=== PATIENT | female | born 1960 | race Caucasian/White ===

== ENCOUNTER 2024-06-01 13:40 | Emergency (ER) | payer SELFPAY ==
[2024-06-01 13:41] VITALS: BP 151/77
--- NOTE | 2024-06-01 15:58 | ED.GENMED ---
History of Present Illness
General
Chief Complaint: Urinary Symptoms
Source: patient
Exam Limitations: none
Time Seen by Provider: 06/01/24 15:28
Nursing documentation reviewed up to this point in time: agreed with
History of Present Illness
History of Present Illness:
63-year-old female with past medical history of A-fib ( on Xarelto ) presents to the ER for evaluation. She reports she recently moved back to the area from [place] and since April she has had issues with urinary frequency urgency and pressure.
She was seen by a family [facility] care physician towards the middle/end of April and had urine specimens tested which were negative for infection. She was told they were contaminated.
She reports she felt fine yesterday however today started with urgency pressure and a lower abdominal pain.
She denies any fever or chills. Because of the pain and the nature of how sharp it was she presented to the ER.
Past History
Past History
ED Past Medical History: None
ED Past Surgical History: Gynecological and Orthopedic
Social History
Tobacco: Non-smoker
Alcohol: None
Drug: None
Personal: Single
Living: with family
Employment: Employed
Review of Systems
Review of Systems
Allergies reviewed?: Yes
All Other Systems: ROS reviewed and negative except as documented in HPI and ROS
Constitutional: Reports no symptoms
Respiratory: Reports no symptoms
Cardiac: Reports no symptoms
ABD/GI: Reports abdominal pain; Denies nausea, vomiting, diarrhea or constipated
: Reports frequency and urgency; Denies dysuria
Skin: Reports no symptoms
Neurological: Reports no symptoms
Psychiatric: Reports no symptoms
Phy Exam
General Physical Exam
General Presentation: no apparent distress
General age: appears stated age
General Skin: warm and dry
General Habitus: normal
General Mental: alert
General Hydration: appears well hydrated
Gastrointestinal Exam
Gastrointestinal Exam: soft and other (lower abd tenderness )
Neurological Exam
Neurological Exam: alert and oriented x3
Musculoskeletal Exam
Musculoskeletal Exam: full ROM
Skin Exam
Skin Exam: normal color and warm/dry
Psychiatric Exam
Psychiatric Exam: normal mood/affect
Course
Orders/Labs/Results
Orders:
Orders
06/01/24 15:53
CT Abd/Pel (IV only)-DH only Urgent
Comment:
Reason For Exam: lower abd pain
IV Insert/Care/Rem.- Treatment PRN
06/01/24 16:26
Complete Blood Count/With Diff Urgent
Comprehensive Metabolic Panel Urgent
Lipase Urgent
06/01/24 17:37
0.9% Sodium Chloride 1000 ml [Nss] 1,000 ml IV BOLUS
06/01/24 19:33
Acetaminophen 1000MG/100Ml [Ofirmev] 1,000 mg in 100 ml IV ONCE
Acetaminophen IV Indication:: ED Narcotic Naive Pt-ONCE
06/01/24 19:47
Urinalysis Reflex To Culture Urgent
Date Specimen was Collected: 06/01/24
Time Specimen was Collected: 19:45
Urine Microscopic Reflex Cult Urgent
Abnormal Lab Results
06/01/24 06/01/24
16:26 19:47
BUN 20 H mg/dl
(7-17)
Total Protein 6.1 L g/dl
(6.3-8.2)
Urine Ketones 3+ A
(Negative)
Ur Occult Blood Reflex 4+ A
(Negative)
Urine RBC 16-20 A /HPF
(0-2)
06/01/24 16:26
06/01/24 16:26
Vital Signs
Initial and Last Documented VS:
Initial Vital Signs
Temp Pulse Resp BP Pulse Ox
98.0 F 78 18 151/77 97
06/01/24 13:41 06/01/24 13:41 06/01/24 13:41 06/01/24 13:41 06/01/24 13:41
Last Documented Vital Signs
Temp Pulse Resp BP Pulse Ox
97.9 F 66 18 136/62 98
06/01/24 19:56 06/01/24 19:56 06/01/24 19:56 06/01/24 19:56 06/01/24 19:56
MDM/Problems Addressed
Differential Diagnosis Includes:
not limited to: Diverticulitis renal colic UTI pyelonephritis
MDM/Problems Addressed:
Patient is a 63-year-old female who has had urinary symptoms intermittently for the past 3 weeks initially she had UTI and was placed on antibiotics today however she complained of lower abdominal pain. She presents awake alert no acute distress
denies any fever she is afebrile with a normal white count normal hemoglobin, normal chemistries; urinalysis shows 16�20 RBCs but negative leuks negative nitrates. CAT scan does show a 4 mm calculus at the left UVJ with associated upstream mild to
moderate left hydroureteronephrosis. In addition there is a large minimally complex right renal cyst. To review this with patient. Patient was given IV acetaminophen here as she is on Xarelto for previous history of A-fib. Will DC with
outpatient urology will give prescription for pain medication and Flomax. His
Chronic conditions affecting care:
History of A-fib on Xarelto
*Critical Care Note
Total Time (30-74mins, 75-104mins- exclusive of procedures): Not Applicable
ED Attending Note
-
Portions of this chart may have been created with voice recognition software.� Occasional wrong word or��sound alike� substitutions may have occurred due to the inherent limitations of voice recognition software.
Discharge Plan
Departure
Patient Disposition: Home (Routine Discharge)
Date of Disposition: 06/01/24
Time of Disposition: 20:24
Patient with high blood pressure during this ER visit?: Yes
Condition: Fair
Covid-19: Not Applicable
Discharge Problem:
Renal colic on left side
Instructions: Kidney stones in adults, BLOOD PRESSURE
Prescriptions:
New
tamsulosin [Flomax] 0.4 mg capsule
0.4 mg PO DAILY Qty: 7 0RF
oxycodone 5 mg capsule
5 mg PO Q6H PRN (Reason: Pain) Qty: 10 0RF
No Action
No Current Medications
Referrals:
Torey Vu MD [Active] -
UNKNOWN - PT DOES,NOT KNOW [Family Provider] -
Activity Restrictions/Additional Instructions:
As discussed strain all urine.
Take Flomax as directed to help with flow of kidney stone. This medication was sent to your pharmacy. You may take Tylenol every 4-6 hours for pain however if needed a prescription for oxycodone was sent to your pharmacy. This is a narcotic. It
will cause drowsiness. No driving or drinking alcohol taking this medication. As discussed it may cause constipation.
be sure to take [id number] stool softener. Follow-up with urology in the next several days .
call to make an appointment tomorrow. Return if any worsening of symptoms of increased pain nausea vomiting fever chills
Interventions
Interventions:
*Risk Screen - Suicide Last Done: 06/01/24 17:03
*General Assessment Last Done: 06/01/24 17:03
*Neglect/Abuse Screening Last Done: 06/01/24 17:03
ED- Fall Risk Assessment Last Done: 06/01/24 17:03
*ED COVID-19 Vaccine History Last Done: 06/01/24 17:03
ED-Female Genitourinary Assessment Last Done: 06/01/24 17:03
Discharge Date and Time
Print Language: MAORI
[2024-06-01 16:36] LABS: % Basophils 0.3 % (0-2); % Eosinophils 2.4 % (0-6); % Immature Granulocytes 0.2 % (0-0.5); % Lymphocytes 27.5 % (20.5-51.1); % Monocytes 5.4 % (1.7-9.3); % Neutrophils 64.2 % (42.2-75.2); Absolute Eosinophils 0.2 10^3/uL (0-0.7); Absolute Lymphocytes 2.4 10^3/uL (1.2-3.4); Absolute Monocytes 0.5 10^3/uL (0.1-0.6); Absolute Neutrophils 5.6 10^3/uL (1.4-6.5); Hematocrit 37.6 % (37.0-47.0); Hemoglobin 12.5 g/dL (12.0-16.0); Mean Corp Hgb Conc. 33.2 g/dL (33.0-37.0); Mean Corpuscular Hgb 28.9 pg (27.0-31.0); Mean Corpuscular Volume 86.8 fL (81.0-99.0); Mean Platelet Volume 9.9 fL (7.4-10.4); Nucleated Red Blood Cells % 0 %; Platelet Count 273 10^3/uL (130-400); Red Blood Cell Count 4.33 10^6/uL (4.20-5.40); Red Cell Dist. Width 12.6 % (11.5-14.5); White Blood Cell Count 8.7 10^3/uL (4.8-10.8)
[2024-06-01 17:06] LABS: ALT (SGPT) 17 U/L (0-35); AST (SGOT) 27 U/L (14-36); Albumin 3.8 g/dl (3.5-5.0); Alkaline Phosphatase 98 U/L (38-126); Blood Urea Nitrogen 20 mg/dl (7-17); Calcium 10.1 mg/dl (8.4-10.2); Carbon Dioxide 25 mmol/L (22-30); Chloride 106 mmol/L (98-107); Glucose 86 mg/dl (70-99); Lipase 80 U/L (23-300); Potassium 3.9 mmol/L (3.5-5.1); Sodium 139 mmol/L (135-145); Total Bilirubin 0.6 mg/dl (0.2-1.3); Total Protein 6.1 g/dl (6.3-8.2); eGFR > 60.00
[2024-06-01 17:12] VITALS: BMI 29.6
[2024-06-01] MEDS: NSS 1000 IV (17:39)
[2024-06-01] MEDS: OFIRMEV 100 IV (19:50)
[2024-06-01 19:56] VITALS: BP 136/62
[2024-06-01 19:58] LABS: Urine Albumin Trace (Neg - Trace); Urine Bilirubin Negative (Negative); Urine Character Clear (Clear); Urine Color Yellow; Urine Glucose Negative (Negative); Urine Ketone 3+ (Negative); Urine Leukocyte Negative (Negative); Urine Nitrite Negative (Negative); Urine Occult Blood 4+ (Negative); Urine Specific Gravity 1.015 (<1.030); Urine Urobilinogen Negative (Neg - 1+)
[2024-06-01 20:18] LABS: Urine Red Blood Cell 16-20 /HPF (0-2); Urine White Cell 0-2 /HPF (0-5)
== END 2024-06-01 20:43 | disposition home or self-care (01) ==
LOC: EMR 13:40
PROVIDERS: Nurse Practitioner; EMERGENCY PHYSICIAN Emergency Medicine
DX: N13.2 Hydronephrosis with renal and ureteral calculous obstruction (principal); I48.91 Unspecified atrial fibrillation; Z79.01 Long term (current) use of anticoagulants; R03.0 Elevated blood-pressure reading, without diagnosis of hypertension
CPT/HCPCS: 99285; 96360; 74177; 80053; 81003; 81015; 83690; 85025; Q9967

== ENCOUNTER 2024-09-21 00:01 | Emergency (ER) | payer MEDICARE, OTHER, SELFPAY ==
[2024-09-21 00:10] VITALS: BP 115/64
[2024-09-21 00:40] LABS: Hematocrit 49.9 % (37.0-47.0); Hemoglobin 16.5 g/dL (12.0-16.0); Mean Corp Hgb Conc. 33.1 g/dL (33.0-37.0); Mean Corpuscular Hgb 28.7 pg (27.0-31.0); Mean Corpuscular Volume 86.9 fL (81.0-99.0); Mean Platelet Volume 9.8 fL (7.4-10.4); Platelet Count 282 10^3/uL (130-400); Red Blood Cell Count 5.74 10^6/uL (4.20-5.40); Red Cell Dist. Width 12.5 % (11.5-14.5); White Blood Cell Count 15.6 10^3/uL (4.8-10.8)
[2024-09-21 00:53] LABS: Blood Urea Nitrogen 31 mg/dl (7-17); Calcium 10.6 mg/dl (8.4-10.2); Carbon Dioxide 26 mmol/L (22-30); Chloride 100 mmol/L (98-107); Glucose 172 mg/dl (70-99); Potassium 4.7 mmol/L (3.5-5.1); Sodium 138 mmol/L (135-145); eGFR > 60.00
--- NOTE | 2024-09-21 01:20 | ED.GENMED ---
History of Present Illness
General
Chief Complaint: Abdominal Symptoms
Time Seen by Provider: 09/21/24 01:20
History of Present Illness
History of Present Illness:
TIME OF INITIAL ENCOUNTER: 1:20 AM
HPI: Approximately 7 hours ago, after working a 10-hour workday, the patient had abrupt onset nausea, vomiting, and diarrhea. She has waves of abdominal pain and some head discomfort but currently does not have any significant pain. She feels
dehydrated. She also has a history of A-fib and is no longer on Xarelto or other meds for her heart because of lack of insurance but currently now has Medicare.
EXAM:
GENERAL: Appears slightly uncomfortable and weak
HEENT: Moist oral mucosa
CARDIOVASCULAR: No murmurs, tachycardic heart rate, irregular rhythm, No chest wall tenderness
PULMONARY: No respiratory distress, breath sounds are clear and equal
ABDOMEN: Soft with no peritoneal signs, no tenderness
NEUROLOGIC: Good strength all extremities, no coordination deficits
PSYCHIATRIC: Appropriate mental status, normal insight and judgement
EXTREMITIES: Nontender, no edema, moves all extremities equally
SKIN: No rash, no lesions
NUMBER AND COMPLEXITY OF PROBLEMS ADDRESSED AT THE ENCOUNTER
� Chronic conditions affecting care: A-fib but no longer takes medications for it
� Acute Exacerbation and/or Progression of Chronic Illness: This is an acute problem
� Differential Diagnosis includes: Dehydration, RANDY, electrolyte abnormality, rapid A-fib, foodborne illness, viral syndrome
AMOUNT AND/OR COMPLEXITY OF DATA TO BE REVIEWED AND ANALYZED
� I performed an independent evaluation of and my interpretation is:
EKG: A-fib 109, normal axis, nonspecific ST and
CT:
X-rays:
Laboratory Studies: White count 15.6, hemoglobin 16.5, BUN 31, creatinine 0.7,
Other:
� Review of other/old records: The patient was seen here 3 months ago diagnosed with renal colic
� Clinical information was obtained by an independent historian: None needed
� Prescriptions/Medications Considered but not given:
� Further testing considered but not performed: Considered CT imaging however the patient has vomiting as well as diarrhea and no significant abdominal tenderness therefore we will hold off on CT
RISK OF COMPLICATIONS AND/OR MORBIDITY OR MORTALITY OF PATIENT MANAGEMENT
� Social determinants of health affecting care: Lives at home
� Discussion with other providers:
� Escalation of care including admission/observation vs risk of discharge considered: Suspect more of a viral syndrome. Leukocytosis noted but the patient has no significant abdominal tenderness. Patient was given IV fluids,
Zofran, Pepcid, and Toradol.
ANY OTHER UPDATES:
3:18 AM: I reassessed patient. The patient feels markedly improved. Will give paper prescription for Xarelto as she has not been taking her Xarelto with history of paroxysmal A-fib. Repeat monitoring shows sinus rhythm with rates in the 80s.
Past History
Past History
ED Past Medical History: None
ED Past Surgical History: Gynecological and Orthopedic
Social History
Tobacco: Non-smoker
Alcohol: None
Drug: None
Personal: Single
Living: with family
Employment: Employed
Phy Exam
Physical Exam
Physical Exam:
See HPI
Course
Orders/Labs/Results
Orders:
Orders
09/21/24 00:14
Electrocardiogram (*1) Urgent
Reason for Study: Atrial Fibrillation
Other Reason for Exam: HX OF AT FIB
09/21/24 00:15
EKG- Treatment ONCE
09/21/24 00:31
BMP [Basic Metabolic Panel] Urgent
Complete Blood Count/No Diff Urgent
09/21/24 01:21
0.9% Sodium Chloride 1000 ml [Nss] 1,000 ml IV BOLUS
Ondansetron Injectable [Zofran] 4 mg IV NOW STA
09/21/24 01:26
Famotidine [Pepcid] 20 mg IV NOW STA
Ketorolac [Toradol] 15 mg IV NOW STA
Abnormal Lab Results
09/21/24
00:31
WBC 15.6 H 10^3/uL
(4.8-10.8)
RBC 5.74 H 10^6/uL
(4.20-5.40)
Hgb 16.5 H g/dL
(12.0-16.0)
Hct 49.9 H %
(37.0-47.0)
BUN 31 H mg/dl
(7-17)
Glucose 172 H mg/dl
(70-99)
Calcium 10.6 H mg/dl
(8.4-10.2)
09/21/24 00:31
09/21/24 00:31
Vital Signs
Initial and Last Documented VS:
Initial Vital Signs
Temp Pulse Resp BP Pulse Ox
36.5 C 88 26 115/64 95
09/21/24 00:10 09/21/24 00:10 09/21/24 00:10 09/21/24 00:10 09/21/24 00:10
Last Documented Vital Signs
Temp Pulse Resp BP Pulse Ox
36.5 C 86 16 96/54 95
09/21/24 00:10 09/21/24 03:00 09/21/24 03:00 09/21/24 03:00 09/21/24 03:00
*Critical Care Note
Total Time (30-74mins, 75-104mins- exclusive of procedures): Not Applicable
ED Attending Note
-
Portions of this chart may have been created with voice recognition software.� Occasional wrong word or��sound alike� substitutions may have occurred due to the inherent limitations of voice recognition software.
Discharge Plan
Departure
Prescriptions:
No Action
No Current Medications
tamsulosin [Flomax] 0.4 mg capsule
0.4 mg PO DAILY Qty: 7 0RF
oxycodone 5 mg capsule
5 mg PO Q6H PRN (Reason: Pain) Qty: 10 0RF
Referrals:
PRIVATE,PHYSICIAN [Family Provider] -
Interventions
Interventions:
*Risk Screen - Suicide Last Done: 09/21/24 00:10
*General Assessment Last Done: 09/21/24 01:34
*Neglect/Abuse Screening Last Done: 09/21/24 00:10
ED- Fall Risk Assessment Last Done: 09/21/24 01:41
*ED COVID-19 Vaccine History Last Done: 09/21/24 01:34
DK-Hxsppr-Rwcexwzugn Assessment Last Done: 09/21/24 01:40
Discharge Date and Time
Print Language: CROATIAN
[2024-09-21 01:30] VITALS: BMI 28.6
[2024-09-21] MEDS: NSS 1000 IV (01:34)
[2024-09-21] MEDS: ZOFRAN 4 MG IV (01:35)
[2024-09-21] MEDS: TORADOL 15 MG IV (01:37)
[2024-09-21] MEDS: PEPCID 20 MG IV (01:37)
[2024-09-21 01:38] VITALS: BP 123/62
[2024-09-21 02:00] VITALS: BP 97/57
[2024-09-21 03:00] VITALS: BP 96/54
== END 2024-09-21 03:43 | disposition home or self-care (01) ==
LOC: EMR 00:01
PROVIDERS: EMERGENCY PHYSICIAN Emergency Medicine
DX: I48.0 Paroxysmal atrial fibrillation (principal); Z91.148 Patient's other noncompliance with medication regimen for other reason; R11.2 Nausea with vomiting, unspecified; R10.9 Unspecified abdominal pain
CPT/HCPCS: 96374; 96375; 96361; 99284; 80048; 85027; 93005

== ENCOUNTER 2024-10-16 18:19 | Emergency (ER) | payer MEDICARE, OTHER, SELFPAY ==
[2024-10-16 18:30] VITALS: BP 119/73
[2024-10-16 19:03] LABS: % Basophils 0.2 % (0-2); % Eosinophils 0.7 % (0-6); % Immature Granulocytes 0.4 % (0-0.5); % Lymphocytes 24.8 % (20.5-51.1); % Monocytes 10.3 % (1.7-9.3); % Neutrophils 63.6 % (42.2-75.2); Absolute Lymphocytes 1.1 10^3/uL (1.2-3.4); Absolute Monocytes 0.5 10^3/uL (0.1-0.6); Absolute Neutrophils 2.9 10^3/uL (1.4-6.5); Hematocrit 43.2 % (37.0-47.0); Hemoglobin 14.2 g/dL (12.0-16.0); Mean Corp Hgb Conc. 32.9 g/dL (33.0-37.0); Mean Corpuscular Volume 88.2 fL (81.0-99.0); Mean Platelet Volume 10.3 fL (7.4-10.4); Nucleated Red Blood Cells % 0 %; Platelet Count 191 10^3/uL (130-400); Red Cell Dist. Width 12.8 % (11.5-14.5); White Blood Cell Count 4.5 10^3/uL (4.8-10.8)
[2024-10-16 19:17] LABS: ALT (SGPT) 18 U/L (0-35); AST (SGOT) 30 U/L (14-36); Albumin 3.9 g/dl (3.5-5.0); Alkaline Phosphatase 90 U/L (38-126); Blood Urea Nitrogen 16 mg/dl (7-17); COVID-19 Antigen Negative (Negative); Carbon Dioxide 27 mmol/L (22-30); Chloride 100 mmol/L (98-107); Glucose 105 mg/dl (70-99); Potassium 4.1 mmol/L (3.5-5.1); Sodium 134 mmol/L (135-145); Total Bilirubin 0.5 mg/dl (0.2-1.3); Total Protein 6.5 g/dl (6.3-8.2); eGFR > 60.00
--- NOTE | 2024-10-16 19:54 | ED.GENMED ---
History of Present Illness
General
Chief Complaint: Cold/Flu/URI Symptoms
Source: patient
Time Seen by Provider: 10/16/24 19:24
History of Present Illness
History of Present Illness:
64-year-old female presents with persistent fevers. Started with symptoms 4 days ago. States that she feels like it is getting worse. Also states that she feels like she has A-fib. Saw the senior research executive yesterday. She is on Xarelto and
metoprolol. No vomiting. No abdominal pain. States just has a persistent cough and reports chest discomfort as a result. No hemoptysis. 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
Past History
Past History
ED Past Medical History: Arrthythmia (Atrial fibrillation)
ED Past Surgical History: Gynecological and Orthopedic
Social History
Tobacco: Non-smoker
Alcohol: None
Drug: None
Personal: Single
Living: with family
Employment: Employed
Phy Exam
Physical Exam
Physical Exam:
CONSTITUTIONAL Patient alert and oriented to person, place and time. Well-appearing. Vital signs reviewed.
HEAD atraumatic, normocephalic.
EYES eyelids normal to inspection, Extraocular muscles intact, Conjunctiva normal, Sclera normal.
NECK normal range of motion, Trachea midline, no jugular venous distention.
RESPIRATORY CHEST No respiratory distress noted, Chest expansion equal, Bilateral breath sounds clear.
CARDIOVASCULAR regular with ectopy, PACs noted on telemetry
ABDOMEN abdomen nontender, Bowel sounds normal. No distention.
BACK normal inspection, no obvious deformities
UPPER EXTREMITY range of motion normal, Motor strength normal, no cyanosis, no edema.
LOWER EXTREMITY range of motion normal, Motor strength normal, no cyanosis, no edema.
NEURO Speech normal, No focal motor deficits, [place] coma scale 15, Memory normal, Cranial Nerves intact to screening exam.
SKIN skin warm, dry, and normal in color.
Course
Orders/Labs/Results
Orders:
Orders
10/16/24 18:32
Electrocardiogram (*1) Urgent
Reason for Study: Chest Pain
EKG- Treatment ONCE
10/16/24 18:38
COVID-19 Antigen Urgent
Source: Nasal Swab
Complete Blood Count/With Diff Urgent
Comprehensive Metabolic Panel Urgent
Influenza A+B Rapid Molecular Urgent
DARBY Source: Nasal Swab
Specimen Description:
10/16/24 19:55
0.9% Sodium Chloride 1000 ml [Nss] 1,000 ml IV BOLUS
Acetaminophen [Tylenol] 1,000 mg PO NOW STA
CR Chest - 2 Views Urgent
Comment:
Reason For Exam: fever
10/16/24 22:22
Amoxicillin 875 mg/Clav 125 mg [Augmentin 875 mg/125 mg] 1 tablet PO NOW STA
Abnormal Lab Results
10/16/24
18:38
WBC 4.5 L 10^3/uL
(4.8-10.8)
MCHC 32.9 L g/dL
(33.0-37.0)
Absolute Lymphs (auto) 1.1 L 10^3/uL
(1.2-3.4)
Monocytes % 10.3 H %
(1.7-9.3)
Sodium 134 L mmol/L
(135-145)
Glucose 105 H mg/dl
(70-99)
10/16/24 18:38
10/16/24 18:38
Vital Signs
Temp: 101.1 F
Initial and Last Documented VS:
Initial Vital Signs
Temp Pulse Resp BP Pulse Ox
100.0 F 107 16 119/73 98
10/16/24 18:30 10/16/24 18:30 10/16/24 18:30 10/16/24 18:30 10/16/24 18:30
Last Documented Vital Signs
Temp Pulse Resp BP Pulse Ox
98.3 F 74 14 116/61 96
10/16/24 21:35 10/16/24 22:00 10/16/24 20:34 10/16/24 21:35 10/16/24 22:00
MDM/Problems Addressed
Differential Diagnosis Includes:
Pneumonia, influenza, viral syndrome electrolyte disturbance
MDM/Problems Addressed:
Influenza, pneumonia
*Radiology
Radiology exam reviewed: radiology read reviewed
*Pulse Oximetry
Patient hypoxic: no
*Thermostat Maker Interpretation
Rate: normal
Interpretation: normal
Rhythm: sinus
*Critical Care Note
Total Time (30-74mins, 75-104mins- exclusive of procedures): Not Applicable
Data Reviewed
Source: patient
Further Testing Considered But Not Given:
Consider CTA chest for chest x-ray reveals possible pneumonia. Will cover with pneumonia in light of her persistent fever
Patient Management
Escalation/DeEscalation of care consider admission/obs:
Stable. Patient appears well. Will cover for pneumonia in light of recent influenza and the way she has had a persistent fever. Overall appears well and feels a little bit better after IV fluids
ED Attending Note
-
Portions of this chart may have been created with voice recognition software.� Occasional wrong word or��sound alike� substitutions may have occurred due to the inherent limitations of voice recognition software.
Discharge Plan
Departure
Patient Disposition: Home (Routine Discharge)
Date of Disposition: 10/16/24
Time of Disposition: 22:32
Patient with high blood pressure during this ER visit?: No
Discharge Problem:
Influenza, Pneumonia
Instructions: Flu, Pneumonia
Prescriptions:
New
amoxicillin-pot clavulanate 875-125 mg tablet
1 tab PO BID Qty: 20 0RF
No Action
No Current Medications
tamsulosin [Flomax] 0.4 mg capsule
0.4 mg PO DAILY Qty: 7 0RF
oxycodone 5 mg capsule
5 mg PO Q6H PRN (Reason: Pain) Qty: 10 0RF
Xarelto 20 mg tablet
20 mg PO DAILY Qty: 30 0RF
Referrals:
UNKNOWN - PT DOES,NOT KNOW [Family Provider] -
Activity Restrictions/Additional Instructions:
Please see your doctor in the next 2 to 3 days for follow-up and reevaluation. Return immediately for worsening symptoms, difficulty breathing, weakness of any kind or any other concerns. Please drink plenty fluids and use Tylenol for fever
control.
Interventions
Interventions:
*Risk Screen - Suicide Last Done: 10/16/24 18:30
*General Assessment Last Done: 10/16/24 20:34
*Neglect/Abuse Screening Last Done: 10/16/24 18:30
ED- Fall Risk Assessment Last Done: 10/16/24 20:34
*ED COVID-19 Vaccine History Last Done: 10/16/24 20:34
ED- Pulmonary Assessment Last Done: 10/16/24 20:34
Discharge Date and Time
Print Language: HEBREW
[2024-10-16] MEDS: TYLENOL 1000 MG PO (20:20)
[2024-10-16] MEDS: NSS 1000 IV (20:28)
[2024-10-16 20:34] VITALS: BP 139/60; BMI 28.3
[2024-10-16 21:35] VITALS: BP 116/61
[2024-10-16] MEDS: AUGMENTIN 875 MG/125 MG 1 TABLET PO (22:48)
== END 2024-10-16 23:02 | disposition home or self-care (01) ==
LOC: EMR 18:19
PROVIDERS: Emergency Medicine; EMERGENCY PHYSICIAN Emergency Medicine
DX: J10.00 Influenza due to other identified influenza virus with unspecified type of pneumonia (principal); I48.91 Unspecified atrial fibrillation; Z79.01 Long term (current) use of anticoagulants
CPT/HCPCS: 99285; 96360; 96361; 71046; 80053; 85025; 87502; 87811; 93005

== ENCOUNTER → 2024-11-29 13:49 | Outpatient (REF) | payer MEDICARE, SELFPAY | LOC: RCS 13:49 | PROVIDERS: ATTENDING PHYSICIAN Internal Medicine | DX: I48.0 Paroxysmal atrial fibrillation (principal) | CPT/HCPCS: 93306 ==

== ENCOUNTER → 2025-02-02 12:46 | Outpatient (REF) | payer MEDICARE, SELFPAY ==
[2025-02-02 14:32] LABS: % Basophils 0.6 % (0-2); % Eosinophils 1.7 % (0-6); % Immature Granulocytes 0.2 % (0-0.5); % Lymphocytes 32.8 % (20.5-51.1); % Monocytes 6.5 % (1.7-9.3); % Neutrophils 58.2 % (42.2-75.2); Absolute Basophils 0.1 10^3/uL (0-0.2); Absolute Eosinophils 0.2 10^3/uL (0-0.7); Absolute Lymphocytes 3.2 10^3/uL (1.2-3.4); Absolute Monocytes 0.6 10^3/uL (0.1-0.6); Absolute Neutrophils 5.6 10^3/uL (1.4-6.5); Hemoglobin 13.7 g/dL (12.0-16.0); Mean Corp Hgb Conc. 31.9 g/dL (33.0-37.0); Mean Corpuscular Hgb 28.2 pg (27.0-31.0); Mean Corpuscular Volume 88.7 fL (81.0-99.0); Mean Platelet Volume 10.2 fL (7.4-10.4); Nucleated Red Blood Cells % 0 %; Platelet Count 270 10^3/uL (130-400); Red Blood Cell Count 4.85 10^6/uL (4.20-5.40); Red Cell Dist. Width 12.5 % (11.5-14.5); White Blood Cell Count 9.6 10^3/uL (4.8-10.8)
[2025-02-02 15:19] LABS: ALT (SGPT) 21 U/L (0-35); AST (SGOT) 27 U/L (14-36); Albumin 4.6 g/dl (3.5-5.0); Alkaline Phosphatase 101 U/L (38-126); Blood Urea Nitrogen 13 mg/dl (7-17); Calcium 10.2 mg/dl (8.4-10.2); Carbon Dioxide 27 mmol/L (22-30); Chloride 105 mmol/L (98-107); Glucose 80 mg/dl (70-99); Potassium 4.1 mmol/L (3.5-5.1); Sodium 140 mmol/L (135-145); Total Protein 7.1 g/dl (6.3-8.2); eGFR > 60.00
== END ==
LOC: SDSPAT 12:46
PROVIDERS: ATTENDING PHYSICIAN Internal Medicine Cardiovascular Disease; OTHER PHYSICIAN Internal Medicine
DX: I48.0 Paroxysmal atrial fibrillation (principal)
CPT/HCPCS: 36415; 80053; 85025; 86850; 86900; 86901; 93005

== ENCOUNTER 2025-02-17 05:53 | Day surgery (SDC) | payer MEDICARE, SELFPAY ==
[2025-02-02 13:28] VITALS: BMI 28.3
--- NOTE | 2025-02-02 13:56 | HPS.HSE ---
Family Physician
-
Family Physician: NO INTERVIEW UNKNOWN
Chief Complaint
-
Paroxysmal atrial fibrillation.
History of Present Illness
The patient is a 64 year old female presenting today for paroxysmal atrial fibrillation. The patient reports dyspnea on exertion where she intermittently 'gasps for air' likely secondary to this diagnosis. It is to the point that she is
unable to exercise anymore due to the fear of setting off an atrial fibrillation episode. She is on current pharmacological therapy with Metoprolol Tartrate. She does report recent compliance with Xarelto for oral anticoagulation due to a CHADS-VASc
of 2. She is interested in pursuing with a FARAPULSE atrial fibrillation ablation for further arrhythmia management. She denies any current complaints today such as chest pain, shortness of breath at rest, palpitations, nausea, vomiting, diarrhea,
lightheadedness, dizziness, cough, sore throat, or fever.
Medical History
Past Medical History
Past Medical History: Reports Other
Additional Past Medical History:
1. Paroxysmal atrial fibrillation, pharmacological therapy with Metoprolol Tartrate and oral anticoagulation with Xarelto.
2. Elevated blood pressure without diagnosis of hypertension.
3. Coronary artery disease, non-obstructive per cath 03/2024.
4. Nephrolithiasis.
5. Irregular bowel habits.
6. Vertigo.
7. Basal and squamous cell carcinoma, status post multiple excisions.
8. Acute blood loss anemia, status post blood transfusion 2004.
9. Situational anxiety.
10. Remote history of tobacco abuse.
Past Surgical History: Reports Other
Additional Past Surgical History:
1. Left cardiac catheterization.
2. Hysterectomy.
3. Right ankle fracture repair with retained hardware.
4. Colonoscopy x2.
Social History
Tobacco: Former Smoker (She is a former 1 pack per day cigarette smoker who quit tobacco altogether at 21 years old. )
Alcohol: None
Living: Alone (in a rented apartment. )
Family History
Family History: Not pertinent
Allergies / Home Medications
Allergy/Medication List:
Home medications:
1. Metoprolol Tartrate 25 mg p.o. at bedtime.
2. Xarelto 20 mg p.o. at bedtime.
Allergies: Codeine (remote).
Review of Systems
-
A 12 point ROS was completed and negative except as noted: Yes
Physical Exam
Vital Signs
Blood pressure 143/68. Heart rate 61. Respirations 18. Pulse ox 97% on room air.
Height 5 feet, 9 inches. Weight 86.9 kg. BMI 28.3.
Physical Exam
General: Well Developed, Well Nourished and No Apparent Distress
HEENT: NormoCephalic, Moist mucous membranes, Atraumatic and PERRLA
Respiratory: Clear
Cardiac: Bradycardia
GI: Soft, Non Tender and Non Distended
Musculoskeletal: No Edema and Normal Gait & Station
Skin: Warm and Dry
Neuro: AO x 3 and Nonfocal/grossly intact
Laboratory Results
-
DIAGNOSTIC STUDIES as of 02/02/2025: White blood cell count 9.6. Hemoglobin 13.7. Platelet count 270,000. Sodium 140. Potassium 4.1. BUN 13. Creatinine 0.6. Glucose 80. Calcium 10.2. AST 27. ALT 21. Albumin 4.6. Type and screen O positive.
EKG 02/02/2025: Sinus bradycardia. Possible left atrial enlargement.
Echocardiogram 11/29/2024: Ejection fraction is 65-70%. No regional wall motion abnormalities are seen. Normal right ventricular size and function. No significant valvular disease.
Impression/Plan
-
IMPRESSION/PLAN:
1. Paroxysmal atrial fibrillation: The patient is in need of FARAPULSE atrial fibrillation ablation with Dr. Paul Trivedi on 02/17/2025. The benefits and risks of the procedure have been explained to the patient. The patient understands these risks
and wishes to proceed. She will not be required to undergo a pre-procedural transesophageal echocardiogram as she has been compliant with her home oral anticoagulation. She is aware to hold her Xarelto the night before and morning of her procedure.
[2025-02-17] VITALS (23 sets, daily range): BP systolic 90–131; BP diastolic 53–64; BMI 27.6
[2025-02-17 08:58] LABS: ACT-LR - POC 335 Seconds (116-155)
[2025-02-17 09:20] LABS: ACT-LR - POC 335 Seconds (116-155)
[2025-02-17 09:26] LABS: ACT-LR - POC 324 Seconds (116-155)
[2025-02-17 09:27] LABS: ACT-LR - POC 355 Seconds (116-155)
[2025-02-17 09:42] LABS: ACT-LR - POC 297 Seconds (116-155)
--- NOTE | 2025-02-17 10:16 | ITS.CL.ABL ---
Founder Ceo & President - Ablation
Ablation
Procedure Report:
AFIB ablation and Watchman Implantation:
Ms. Brown is a very pleasant 64 yr old woman with symptomatic paroxysmal AF, is recommended for atrial fibrillation ablation.
Date of the Procedure:
02/17/2025
Indications:
Paroxysmal atrial fibrillation
Pre-Operative Diagnosis:
Paroxysmal atrial fibrillation / atrial flutter
Post-Operative Diagnosis:
Paroxysmal atrial fibrillation / atrial flutter
Procedure Performed:
Atrial fibrillation ablation with Pulsed-Field approach for pulmonary vein isolation
Roof dependent atrial flutter ablation
Posterior wall isolation
Performing Physician:
Paul Trivedi MD
Assistants:
EP staff
Anesthesia:
See anesthesia records
Detailed Description of the Procedure:
Written informed consent was obtained from the patient after a full explanation of the risks and benefits of the procedure including the risks of sedation and anesthesia.
The patient was brought to the electrophysiology laboratory in stable condition in fasting state. Continuous electrocardiographic and hemodynamic monitoring was initiated.
The initial rhythm was normal sinus rhythm.
The procedure site was meticulously prepared with surgical scrub and allowed to dry with no pooling. Sterile draping was applied to cover the procedure site. The image intensifier was draped with sterile bag and positioned over the patient. After
infusion of local anesthetic, vascular access was obtained under ultrasound guidance and sheaths were placed over guide wire as detailed below.
Sheath and Catheter Placement:
The following catheters / sheaths were placed
Sheaths:
��������� 17Fr steerable sheath (ZinkoTekriCodinGame�, Cycle) in right femoral
��������� 9Fr in right femoral vein
Catheters:
��������� REGINA HD Grid mapping catheter � at locations of RA, LA
��������� Farawave� PFA catheter
��������� ICE catheter -AcuNav - at locations of RA, SVC, and RV.
Intracardiac ECHO:
An 8-Belgian AcuNav intracardiac ECHO (ICE) probe was advanced through the 9-Belgian sheath in the right femoral vein into the right atrium under fluoroscopic and ICE ultrasound image guidance and a baseline ECHO study was performed. The left atrial
size was dilated. There was moderate tricuspid regurgitation. The aortic valve was grossly normal. There was normal left ventricular systolic functions. There is no pericardial effusion. All the four veins were identified and has flow identified.
There was good flow noted in the PATRICE.
During the procedure, ICE was used for monitoring of complications, guidance of trans-septal puncture, monitor the catheter position and tracking ablation lesions. No change in the pericardial space noted throughout the procedure.
Trans-septal Puncture:
Heparin was initiated and infused to maintain appropriate ACT. A pigtail guidewire was advanced through the 8-Belgian sheath in the right femoral vein into the superior vena cava under fluoroscopic and ICE guidance. The 9-Belgian sheath was exchanged
for a Faradrive sheath which was advanced into the superior vena cava. A transseptal VersaCross RF pigtail via Faradrive connect system was utilized to perform the trans-septal puncture. The apparatus was withdrawn until it was in contact with the
fossa ovalis. There was a large Foramen Ovale that was used to cross the septum to the LA. Once atrial septum was cannulated, the pigtail wire was advanced into the left atrium. The guide wire was advanced into the left superior pulmonary vein. Both
the sheath and the dilator was advanced into the left atrium. The dilator with the needle was withdrawn. Blood was aspirated from the Faradrive sheath and arterial blood confirmed. The sheath was flushed. Saline injection noted into the left atrium
on ICE. The mapping catheter was advanced in the sheath into the left pulmonary vein. Left atrial pressure was measured.
3D Electroanatomic Mapping:
Using the HD Grid catheter advanced through sheath into the left atrium, an electroanatomic map (EAM) of the left atrium was created using theeventwall mapping system. The map was used for localization of catheter position and tacking of ablation
lesions.
The EAM of the left atrium showed 4 pulmonary veins with all 4 veins electrically connected to the body the LA. It showed good signals in sinus rhythm. The LA was dilated in size.
Following the EAM, preparation were made for ablation.
Ablation:
Ablation # 1: Pulmonary vein Isolation:
Glycopyrrolate 0.2 mg was given prior to the placement of ablation. Using [employer] pulsed field ablation system, pulmonary vein isolation was achieved. First the ablation catheter was placed in the LSPV and ostial ablation lesions were performed in
an �[place]� formation of the Farawave configuration and a counter clock barker rotation was done and ablated to cover the area between the electrodes. Then the catheter was placed on the antral location in �Flower� configuration and multiple ablation
lesions were placed circumferentially on the antrum of the vein.
In the similar fashion, the LIPV were isolated.
Then the catheter was moved to right sided veins. The ostial and antral ablations were placed as noted above.
Post PVI Electroanatomic mapping:
Once ablation was completed, the EAM of the LA was done again in sinus rhythm using HD Grid with excellent demarcation of LA myocardium and isolated antral tissue. There was only little scattered scar noted on the anterior wall with slow conduction
of the signals at the roof with a perfect substrate for roof dependent flutter. The decision was made to proceed with roof line formation through the scar and posterior wall isolation.
The PATRICE had healthy signals and was not isolated.
Ablation #2: Roof dependent flutter ablation
Using the pulsed field ablation catheter, the catheter was placed between left superior pulmonary vein and right severe pulmonary vein with series of overlapping ablation lesions placed.
Ablation # 3: Posterior wall isolation:
Using the pulsed field ablation catheter, the catheter was placed on the posterior wall and moved around the posterior wall to have adequate contact and ablations were placed isolating the posterior wall.
EPS and Confirmation of the PVI and bidirectional block:
Following achievement of entrance block at the pulmonary veins, pacing from the HD catheter in each of the four veins at 10 milliamps for 2 milliseconds showed entrance and exit block. All PVI were rechecked at the end of the case and remained
isolated. Entrance and exit block were demonstrated in all veins.
Post ablation Electroanatomic mapping:
Once ablation was completed, the EAM of the LA was done again in sinus rhythm with excellent demarcation of LA myocardium and isolated antral tissue.
The PATRICE had healthy signals and was not isolated.
Procedure End
ICE study was done again that showed no epicardial accumulation. No complications noted.
Following the completion of the EP study, catheters were removed. Protamine 40 mg was given at the end of the procedure and ACT was checked repeatedly. The sheaths were removed and hemostasis achieved with �VASCADE� and manual compression after
acceptable ACT is achieved.
Left atrial Pressure:
Mean LA pressure was 9mmHg
Mean RA pressure was 7 mmHg.
Estimated Blood loss:
<10 cc
Specimens Removed:
None.
Implants / Devices:
None
Urine output:
None
Packs / Drains/ Tubes:
None
Instrument / Sponge Count Correct:
Yes
Complications of the Procedure:
None
Condition of Patient at Time of Transfer:
Hemodynamically stable with no neurological or vascular compromise.
Summary:
Successful atrial fibrillation ablation with Pulsed Field approach for pulmonary vein isolation, roof dependent flutter ablation and posterior wall isolation. .
Figures from the Procedure:
Figure 1: The electroanatomic mapping (EAM) of the left atrium with bipolar voltage (purple indicates normal electrical activity with coleman as no myocardial muscle electric activity indicating a line of block or scar.
[2025-02-17] MEDS: ZOFRAN 4 MG IV (11:03)
[2025-02-17] MEDS: TYLENOL 650 MG PO (13:08)
[2025-02-17] MEDS: ANESTHETIC LOZENGE 1 LOZENGE PO (13:10)
--- NOTE | 2025-02-17 15:06 | W.PN.UPDATE ---
Update Note
Progress Note Update
64 yo WF s/p PVI (same day). She had some mild 3/10 chest discomfort, denies sob, feliz diet, voiding, R fem site Vascade c/d/i no HT, EKG SB. She will resume Xarelto tonight and continue metoprolol. Activity restrictions reviewed. She will f/u [employer] in
2 weeks. She is for d/c home after 2pm.
== END 2025-02-17 14:41 | disposition home or self-care (01) ==
LOC: CATH 05:53
PROVIDERS: ATTENDING PHYSICIAN Internal Medicine Cardiovascular Disease; FAMILY PHYSICIAN Student in an Organized Health Care Education/Training Program; OTHER PHYSICIAN Internal Medicine
DX: I48.0 Paroxysmal atrial fibrillation (principal); I48.92 Unspecified atrial flutter; R06.09 Other forms of dyspnea; I25.10 Atherosclerotic heart disease of native coronary artery without angina pectoris; Z87.891 Personal history of nicotine dependence; Z79.01 Long term (current) use of anticoagulants
CPT/HCPCS: C1732; C1894; C1892; C1759; 85347; 86900; 86901; 93005; 93655; 93656; 93657; C1733; C1760; C1766

== ENCOUNTER → 2025-09-07 08:13 | Outpatient (REF) | payer MEDICARE, SELFPAY ==
[2025-09-07 09:23] LABS: Hematocrit 43.8 % (37.0-47.0); Hemoglobin 14.0 g/dL (12.0-16.0); Mean Corp Hgb Conc. 32.0 g/dL (33.0-37.0); Mean Corpuscular Volume 90.9 fL (81.0-99.0); Nucleated Red Blood Cells % 0 %; Platelet Count 263 10^3/uL (130-400); Red Cell Dist. Width 12.4 % (11.5-14.5)
[2025-09-07 10:49] LABS: ALT (SGPT) 16 U/L (0-35); AST (SGOT) 22 U/L (14-36); Albumin 4.2 g/dl (3.5-5.0); Alkaline Phosphatase 109 U/L (38-126); Blood Urea Nitrogen 19 mg/dl (7-17); Calcium 9.7 mg/dl (8.4-10.2); Carbon Dioxide 28 mmol/L (22-30); Chloride 105 mmol/L (98-107); Glucose 104 mg/dl (70-99); Potassium 4.4 mmol/L (3.5-5.1); Sodium 138 mmol/L (135-145); Total Protein 7.0 g/dl (6.3-8.2); eGFR > 60.00
== END ==
LOC: REG 08:13
PROVIDERS: ATTENDING PHYSICIAN Student in an Organized Health Care Education/Training Program
DX: Z00.00 Encounter for general adult medical examination without abnormal findings (principal); Z79.01 Long term (current) use of anticoagulants; Z13.220 Encounter for screening for lipoid disorders; Z13.29 Encounter for screening for other suspected endocrine disorder
CPT/HCPCS: 36415; 80053; 85025